=== PATIENT | male | born 1975 | race African-American/Black ===

== ENCOUNTER 2018-04-03 17:18 | Emergency (ER) | payer OTHER ==
[2018-04-03 18:23] LABS: ADD MAN DIFF? NO
[2018-04-03 18:27] LABS: BASOPHILS % 0.2 % (0.0-2.0); EOSINOPHILS # 0.4 10^3/ul (0.0-0.5); EOSINOPHILS % 4.4 % (0.0-7.0); HEMATOCRIT 39.5 % (42.0-52.0); HEMOGLOBIN 13.3 g/dl (14.0-18.0); LYMPHOCYTES # 1.4 10^3/ul (0.8-2.9); LYMPHOCYTES % 17.4 % (15.0-51.0); MEAN CORPUSCULAR HEMOGLOBIN 28.1 pg (29.0-33.0); MEAN CORPUSCULAR HGB CONC 33.7 g/dl (32.0-37.0); MEAN CORPUSCULAR VOLUME 83.3 fl (82.0-101.0); MEAN PLATELET VOLUME 10.5 fl (7.4-10.4); MONOCYTE # 0.8 10^3/ul (0.3-0.9); MONOCYTES % 9.3 % (0.0-11.0); NEUTROPHIL # 5.5 10^3/ul (1.6-7.5); NEUTROPHILS % 68.5 % (39.0-77.0); PLATELET COUNT 226 10^3/UL (140-415); RED BLOOD COUNT 4.74 10^6/ul (4.70-6.10); RED CELL DISTRIBUTION WIDTH 13.5 % (11.5-14.5)
[2018-04-03 18:27] LABS: WHITE BLOOD COUNT 8.1 10^3/ul (4.8-10.8)
[2018-04-03 18:38] LABS: INR 0.97
[2018-04-03 18:44] LABS: ANION GAP 14 (8-16); BLOOD UREA NITROGEN 4 mg/dl (7-20); CALCIUM 9.6 mg/dl (8.4-10.2); CARBON DIOXIDE 28 mmol/L (21-31); CHLORIDE 104 mmol/L (97-110); CREATININE 0.93 mg/dl (0.61-1.24); GLUCOSE 114 mg/dl (70-220); POTASSIUM 3.5 mmol/L (3.5-5.1); SODIUM 142 mmol/L (135-144)
[2018-04-03 18:44] LABS: LIPASE 107 U/L (23-300)
[2018-04-03] MEDS: KETOROLAC 15 MG INJ IV (18:49)
[2018-04-03 18:55] LABS: B-TYPE NATRIURETIC PEPTIDE 15 PG/ML (0-125)
[2018-04-03 18:58] LABS: ADD UMIC NO; UR ASCORBIC ACID NEGATIVE (NEGATIVE); UR BILIRUBIN (Dip) NEGATIVE (NEGATIVE); UR BLOOD (Dip) NEGATIVE (NEGATIVE); UR CLARITY CLEAR (CLEAR); UR COLOR STRAW (YELLOW); UR GLUCOSE (Dip) NEGATIVE (NEGATIVE); UR KETONES (Dip) NEGATIVE (NEGATIVE); UR LEUKOCYTE ESTERASE (Dip) NEGATIVE Leu/ul (NEGATIVE); UR NITRITE (Dip) NEGATIVE (NEGATIVE); UR SPECIFIC GRAVITY (Dip) 1.001 (1.003-1.030); UR TOTAL PROTEIN (Dip) NEGATIVE (NEGATIVE); UR UROBILINOGEN (Dip) NEGATIVE (NEGATIVE)
[2018-04-03 19:04] LABS: TROPONIN-I < 0.012 ng/ml (0.00-0.12)
[2018-04-03] MEDS: SOD CHLORIDE 0.9% 1,000 ML IV (19:05)
[2018-04-03 20:04] LABS: ALANINE AMINOTRANSFERASE 20 IU/L (13-69); ALBUMIN 4.2 g/dl (3.3-4.9); ALKALINE PHOSPHATASE 66 IU/L (42-121); ASPARTATE AMINO TRANSFERASE 19 IU/L (15-46); BILIRUBIN,INDIRECT 0.2 mg/dl (0-1.1); BILIRUBIN,TOTAL 0.2 mg/dl (0.2-1.3); TOTAL PROTEIN 7.8 g/dl (6.1-8.1)
== END 2018-04-03 21:05 | disposition home or self-care (01) ==
LOC: E/R 17:18
DX: D64.9 Anemia, unspecified (principal); M54.5 Low back pain; R10.11 Right upper quadrant pain
CPT/HCPCS: 36415; 71045; 76705; 80048; 80076; 81003; 83690; 83880; 84484; 85025; 85610; 93005; 96374; 99285-25

== ENCOUNTER 2019-08-17 09:20 | Emergency (ER) | payer OTHER ==
[2019-08-17] MEDS: predniSONE 20 MG TAB PO (09:58)
[2019-08-17] MEDS: IPRATROPIUM (NEB) 0.5 MG/2.5 ML AMP INH (10:35)
[2019-08-17] MEDS: ALBUTEROL 0.5% (NEB) 2.5 MG/0.5 ML AMP INH (10:35)
== END 2019-08-17 12:30 | disposition home or self-care (01) ==
LOC: E/R 09:20
DX: J40 Bronchitis, not specified as acute or chronic (principal); J45.21 Mild intermittent asthma with (acute) exacerbation; F17.210 Nicotine dependence, cigarettes, uncomplicated
CPT/HCPCS: 71045; 94644; 99283-25